=== PATIENT | female | born 1980 | race American Indian/Alaskan Native ===

== ENCOUNTER 2021-10-25 08:53 | Day surgery (SDC) | payer OTHER ==
[2021-10-25] MEDS ORDERED: propofoL 200 MG/20 ML VIAL IV ONE (09:02)
[2021-10-25] MEDS ORDERED: fentaNYL 100 MCG/2 ML INJ ONE (09:02)
[2021-10-25] MEDS ORDERED: ROCURONIUM 50 MG/5 ML INJ IV ONE (09:02)
[2021-10-25] MEDS ORDERED: KETAMINE/STERILE WATER 50 MG/ML SYRINGE ONE (09:02)
[2021-10-25] MEDS ORDERED: MIDAZOLAM 2 MG/2 ML INJ ONE (09:02)
[2021-10-25] MEDS ORDERED: dexAMETHasone 20 MG/5 ML VIAL ONE (09:02)
[2021-10-25] MEDS ORDERED: LIDOCAINE MPF (2%) 20 MG/1 ML VIAL 5 ML ONE (09:02)
[2021-10-25] MEDS ORDERED: ONDANSETRON 4 MG/2 ML INJ ONE (09:02)
[2021-10-25] MEDS ORDERED: BUPIVACAINE/PF (0.25%) 2.5 MG/ML 30 ML VIAL INFILTRATI ONE ×2 (10:00→11:32)
[2021-10-25] MEDS ORDERED: LIDOCAINE (1%) 10 MG/1 ML VIAL 20 ML MDV ONE (10:00)
--- NOTE | 2021-10-25 10:08 | Anesthesia Consultation ---
Anesthesia Consult and Med Hx Date of service: 10/25/21 - Airway Anesthetic Teeth Evaluation: Good ROM Head & Neck: Adequate Mental/Hyoid Distance: Adequate Mallampati Class: Class II Intubation Access Assessment: Good - Pulmonary Exam CTA: Yes - Cardiac Exam Cardiac Exam: No Murmur - Pre-Operative Health Status ASA Pre-Surgery Classification: ASA2, Emergency Proposed Anesthetic Plan: General - Pulmonary Hx Asthma: No COPD: No Hx Pneumonia: No - Cardiovascular System Hx Cardia Arrhythmia: No - Endocrine Hx End Stage Renal Disease: No Hx Liver Disease: No - Hematic Hx Anemia: No - Other Systems Hx Alcohol Use: No Hx Substance Use: No Hx Obesity: Yes - Additional Comments Anesthesia Medical History Comments: post-op N/V with C/S
--- NOTE | 2021-10-25 10:09 | Anesthesia Day of Surgery ---
Anesthesia Day of Surgery - Day of Surgery Patient Examined: Yes Patient is NPO: Yes
[2021-10-25] MEDS ORDERED: ceFAZolin 1 GM VIAL ONE (10:59)
[2021-10-25] MEDS ORDERED: LIDOCAINE (1%) 10 MG/1 ML VIAL 20 ML MDV INFILTRATI ONE (11:31)
[2021-10-25] MEDS ORDERED: LACTATED RINGERS 1,000 ML ONE (11:32)
[2021-10-25] MEDS ORDERED: NEOSTIGMINE 10MG/10 ML INJ MDV ONE (11:33)
[2021-10-25] MEDS ORDERED: SODIUM CHLORIDE 0.9% IRRIG SOLN 2000 ML IR ONE (11:33)
[2021-10-25] MEDS ORDERED: GLYCOPYRROLATE 0.4 MG/2 ML INJ ONE (11:33)
[2021-10-25] MEDS ORDERED: oxyCODONE /ACETAMINOPHEN 5-325MG TAB PO PRN (12:28)
[2021-10-25] MEDS ORDERED: ONDANSETRON 4 MG/2 ML INJ IV PRN (12:28)
[2021-10-25] MEDS ORDERED: HYDROmorphone 1 MG/1 ML INJ IV PRN (12:28)
--- NOTE | 2021-10-25 12:36 | Procedure Note ---
Date of procedure: 10/25/21 Pre-op diagnosis: gallstone pancreatitis Post-op diagnosis: same Procedure: Laparoscopic cholecystectomy Description of procedure: Pt was placed supine on the OR table. GETA was administered. Abdomen was prepped and draped. Proposed trocar sites were i nfiltrated with 8 ml of 0.5% Marcaine. A small infraumbilical incision was made. Peritoneal cavity was carefully entered. Elpidio port was inserted into the peritoneal cavity and pneumoperitoneum established. 10 mm subxiphoid, 5 mm RUQ and 5 mm right lateral ports were inserted into the peritoneal cavity without incident. Pt was placed head and right side up. Fundus of the gallbladder was grasped and was retracted cephalad. Omental adhesions to the gallbladder were taken down with Bovie dissection. Neck of the gallbladder, cystic duct and cystic artery were skeletonized and the critical view of safety obtained. Not unexpectedly, the pt's cystic duct was dilated. The standard clips would not completely go across the entire duct. The duct was therefore transected and the duct ligated with an endoloop. Cystic artery was doubly clipped and divided. The gallbladder was dissected off of it's hepatic fossa with the Bovie. The gallbladder was placed in an endobag and the endobag r emoved via the infraumbilical fascial defect. The Elpidio port was replaced and irrigation fluid used during the procedure was aspirated from Smith's pouch and the sub-hepatic space. Upper abdominal ports were removed with no bleeding identified under low pressure. The Elpidio port was removed and the pneumoperitoneum released. The infraumbilical fascial defect was closed with 3 interrupted sutures of 0-Vicryl. Skin incisions were closed with running subcuticular sutures of 4-0 Monocryl. Skin glue was applied to all incisions. Pt tolerated the procedure well. Pt was extubated in the OR and was taken to PACU in stable condition. Anesthesia: GETA Surgeon: ELVIS AGUIRRE Estimated blood loss: minimal Pathology: list (Gallbladder) Specimen disposition: to lab Condition: stable Disposition: PACU
--- NOTE | 2021-10-25 13:45 | Post Anesthesia Evaluation ---
- Post Anesthesia Evaluation Patient Participated: Yes Airway Patent: Yes Stable Respiratory Function: Yes Nausea/Vomiting: No Temp > 96.8F: Yes Pain Manageable: Yes Adequeate Hydration: Yes Anesthesia Complications: No
[2021-10-25 16:01] VITALS: BP 150/81
== END 2021-10-25 14:00 | disposition home or self-care (01) ==
LOC: OR 08:53
PROVIDERS: ATTEND Surgery
DX: K80.10 Calculus of gallbladder with chronic cholecystitis without obstruction (principal); E66.9 Obesity, unspecified; Z79.899 Other long term (current) drug therapy; Z98.890 Other specified postprocedural states
CPT/HCPCS: 47562; 88304; J0690; J1100; J1815; J2250; J2405; J2704; J2710; J3010; J3490; J7120